=== PATIENT | male | born 1940 | race Caucasian/White ===

== ENCOUNTER → 2021-06-20 | Outpatient (CLI) | payer OTHER ==
[~2021-06-20] MED LIST: GABAPENTIN100 M2 PO; GABAPENTIN600 MG PO; HYDROCODONE BIT1 T11 PO; LEVOFLOXACIN500 MG PO; PERCOCET 325 MG1 TA7 PO; TRAZODONE50 MG PO
== END | disposition home or self-care (01) ==
LOC: CARD 09:07
PROVIDERS: ATTEND Nurse Practitioner Family
DX: I34.0 Nonrheumatic mitral (valve) insufficiency (principal)

== ENCOUNTER → 2021-12-05 | Outpatient (CLI) | payer OTHER ==
[~2021-12-05] MED LIST changes: +VITAMIN B125000 MCG PO; +VITAMIN D350 MC2 PO
== END | disposition home or self-care (01) ==
LOC: CARD 01:49
PROVIDERS: ATTEND Internal Medicine Cardiovascular Disease
DX: I10 Essential (primary) hypertension (principal); I49.3 Ventricular premature depolarization; I47.1 Supraventricular tachycardia